=== PATIENT | male | born 1970 | race Hispanic/Latino ===

== ENCOUNTER 2021-05-28 12:56 | Emergency (ER) | payer BC ==
[~2021-05-28] VITALS: Ht 167.6 cm; Wt 113.4 kg
[2021-05-28] MEDS ORDERED: KETOROLAC 30MG VIAL (30MG/ML) IV ONE (13:30)
[2021-05-28] MEDS ORDERED: ONDANSETRON 4MG INJ IVP ONE (13:30)
[2021-05-28 14:14] LABS: APPEARANCE,URINE Cloudy (CLEAR); BILIRUBIN,URINE Negative (NEGATIVE); COLOR,URINE Orange (YELLOW); GLUCOSE, URINE (UA) TRACE mg/dL (NEGATIVE); KETONES,URINE 40 mg/dL (NEGATIVE); LEUKOCYTE ESTERASE ,URINE Trace (NEGATIVE); NITRATE,URINE Negative (NEGATIVE); OCCULT BLOOD,URINE Large (NEGATIVE); PROTEIN,URINE POS 1+ mg/dL (NEGATIVE)
[2021-05-28 14:15] LABS: BASOPHILS % (AUTO) 0.5 % (0.0-5.0); EOSINOPHILS % (AUTO) 0.1 % (0.0-8.0); LYMPHOCYTES % (AUTO) 10.9 % (21.0-51.0); MEAN CORPUSCULAR HEMOGLOBIN 33.1 pg (27.0-33.0); MEAN CORPUSCULAR VOLUME 89.5 fL (79-99); MONOCYTES % (AUTO) 6.7 % (3.0-13.0); NEUTROPHILS % (AUTO) 81.4 % (40.0-77.0); PLATELET COUNT (AUTO) 125 K/uL (130-400); RED BLOOD CELL COUNT(AUTO) 5.25 MIL/uL (4.50-6.20); RED CELL DISTRIBUTION WIDTH 12.7 % (11.0-15.5); WHITE BLOOD COUNT (AUTO) 8.4 K/uL (4.8-10.8)
[2021-05-28 14:21] LABS: CARBON DIOXIDE 26 mmol/L (21-32); CHLORIDE 104 mmol/L (101-111); CREATININE 1.3 mg/dL (0.5-1.5); GLOMERULAR FILTR. RATE CALC 63 mL/min (>60); GLUCOSE,RANDOM 175 mg/dL (70-105); POTASSIUM 3.6 mmol/L (3.5-5.1); SODIUM SERUM 138 mmol/L (136-145); UREA NITROGEN, BLOOD 13 mg/dL (7-18)
[2021-05-28] MEDS ORDERED: CEFTRIAXONE 1G VIAL IVP ONE (14:30)
[2021-05-28] MEDS ORDERED: 0.9%NACL 1000ML 1,000 ML IV ONE (14:30)
[2021-05-28 14:31] LABS: ALANINE AMINOTRANSFERASE 363 U/L (12-78); ALBUMIN 3.8 g/dL (3.5-5.0); ASPARTATE AMINOTRANSFERASE 146 U/L (10-37); BILIRUBIN,TOTAL 1.7 mg/dL (0.2-1.0); LIPASE 90 U/L (114-286); TOTAL PROTEIN, SERUM 7.1 g/dL (6.0-8.3)
[2021-05-28 14:31] LABS: BACTERIA,URINE Few /HPF (None Seen); MUCUS,URINE Few LPF (None Seen); RBC,URINE 26-50 /HPF (0-1); SQUAMOUS EPITHELIAL CELL,UR Moderate /HPF (0-2)
[2021-05-28 14:32] LABS: CRP QUANTITATIVE < 2.00 mg/L (0.00-9.0)
[2021-05-28] MEDS: TAMSULOSIN HCL 0.4 MG CAP.ER.24H PO SCH ×2 (14:57→15:50)
[2021-05-28] MEDS ORDERED: TAMS-1 PO (15:26)
[2021-05-28] MEDS ORDERED: CEPH500B PO (15:26)
[2021-05-28] MEDS ORDERED: KETO10 PO (15:26)
[2021-05-28] MEDS ORDERED: MORPHINE 2 MG SYG ONE (15:37)
[2021-05-28] MEDS ORDERED: MORPHINE 2 MG SYG IVP ONE (16:00)
[2021-05-28] MEDS ORDERED: LORAZEPAM 2 MG/ML 1 ML VIAL IVP ONE (16:30)
[2021-05-28] MEDS ORDERED: LORAZEPAM 2 MG/ML 1 ML VIAL ONE (16:48)
[2021-05-28 17:19] VITALS: BP 134/81
[2021-05-31 03:09] LABS: HEPATITIS B CORE IGM Negative (Negative); HEPATITIS Bs ANTIGEN SCREEN P Negative (Negative)
== END 2021-05-28 17:19 | disposition home or self-care (01) ==
LOC: EDH 12:56
DX: N20.0 Calculus of kidney (principal); N39.0 Urinary tract infection, site not specified; R73.09 Other abnormal glucose; R74.8 Abnormal levels of other serum enzymes; Z79.1 Long term (current) use of non-steroidal anti-inflammatories (NSAID)
CPT/HCPCS: 36415; 74176; 80053; 80074; 81001; 83690; 84484; 85025; 86140; 87088; 96361; 96374; 96375; 99284; J0696; J1885; J2060; J2405; J7030